=== PATIENT | female | born 1980 | race Caucasian/White ===

== ENCOUNTER 2018-08-04 18:43 | Emergency (ER) | payer SELFPAY ==
[2018-08-04 18:58] VITALS: BP 146/90
--- NOTE | 2018-08-04 19:16 | ER Document Report ---
ED General - General Chief Complaint: Chest Pain Stated Complaint: CHEST PAIN, SOB, ARM PAIN Time Seen by Provider: 08/04/18 19:04 Mode of Arrival: Ambulatory Information source: Patient, Relative Notes: This 37-year-old female patient reports waking up at 2:00 in the morning with left shoulder hurting. It eased off she was able to go back to sleep. She woke up again at 5:30 AM with her left chest hurting which was severe about 30 seconds and improved. Since getting up, the pain has been persistent and involves her left arm and shoulder, on her left anterior chest. She notes it is painful to turn twist and reach and to take a deep breath. During the history of physical when I would say something that would make the patient laugh, it would cause her to hurt worse. TRAVEL OUTSIDE OF THE [place] IN LAST 30 DAYS: No - Related Data Allergies/Adverse Reactions: clarithromycin [From Biaxin] Allergy (Verified 08/04/18 18:44) Past Medical History - General Information source: Patient, Relative - Social History Smoking Status: Current Every Day Smoker Cigarette use (# per day): Yes - 3/4 PPD Chew tobacco use (# tins/day): No Smoking Education Provided: No Frequency of alcohol use: None Drug Abuse: None Family History: Reviewed & Not Pertinent Patient has suicidal ideation: No Patient has homicidal ideation: No Neurological Medical History: Reports: Other - Pseudotumor cerebra Traumatic Medical History: Reports: Hx Fractures - Bilateral ankle fractures Past Surgical History: Reports: Hx Section - x3, Hx Orthopedic Surgery - Bilateral ankle ORIF and removal of hardware, Hx Tonsillectomy Review of Systems - Review of Systems Constitutional: No symptoms reported EENT: No symptoms reported Cardiovascular: No symptoms reported Respiratory: No symptoms reported Gastrointestinal: No symptoms reported Genitourinary: No symptoms reported Female Genitourinary: Last menstrual period - 2 weeks ago Musculoskeletal: No symptoms reported Skin: No symptoms reported Hematologic/Lymphatic: No symptoms reported Neurological/Psychological: No symptoms reported Physical Exam - Vital signs Vitals: Temp Pulse Resp BP Pulse Ox 98.1 F 107 H 17 146/90 H 95 08/04/18 18:56 08/04/18 18:56 08/04/18 18:56 08/04/18 18:56 08/04/18 18:56 - Notes Notes: PHYSICAL EXAMINATION: GENERAL: Well-appearing, well-nourished and in no acute distress. HEAD: Atraumatic, normocephalic. EYES: Pupils equal round and reactive to light, extraocular movements intact, sclera anicteric, conjunctiva are normal. ENT: nares patent, oropharynx clear without exudates. Moist mucous membranes. NECK: Left posterior cervical and trapezius muscles very tender to palpate. Right side is not tender. BACK: Left scapular muscles tender to palpate. Right side is not tender. CHEST: Left anterior chest wall is very tender to palpate along the sternum and the anterior ribs underneath the breast. The right side is not tender to palpate. Left pectoralis muscle is tender to palpate, the right pectoralis muscle is not tender. LUNGS: Breath sounds clear to auscultation bilaterally and equal. There is some rhonchi and smoker's type cough when the patient laughs and provokes a coughing spell. This also causes her to hurt worse in the left anterior chest. HEART: Regular rate and rhythm without murmurs ABDOMEN: Obese. Soft, nontender, normoactive bowel sounds. No guarding, no rebound. No masses appreciated. EXTREMITIES: Normal range of motion, no pitting or edema. No cyanosis. Left shoulder deltoid region tender to palpate. Right shoulder is not tender. NEUROLOGICAL: Cranial nerves grossly intact. Normal speech, normal gait. Normal sensory, motor, and reflex exams. PSYCH: Normal mood, normal affect. SKIN: Warm, Dry, normal turgor, no rashes or lesions noted. Course - Vital Signs Vital signs: Temp Pulse Resp BP Pulse Ox 98.1 F 107 H 17 146/90 H 95 08/04/18 18:56 08/04/18 18:56 08/04/18 18:56 08/04/18 18:56 08/04/18 18:56 Discharge - Discharge Clinical Impression: Chest wall pain Muscle strain of left scapular region Qualifiers: Encounter type: initial encounter Qualified Code(s): S46.912A - Strain of unspecified muscle, fascia and tendon at shoulder and upper arm level, left arm, initial encounter Strain of left trapezius muscle Qualifiers: Encounter type: initial encounter Qualified Code(s): S46.812A - Strain of other muscles, fascia and tendons at shoulder and upper arm level, left arm, initial encounter Condition: Stable Disposition: HOME, SELF-CARE Additional Instructions: Chest Wall Pain Your chest pain has been diagnosed as coming from the chest wall. This is often caused by straining the muscles or joints in the chest during physical activity, direct trauma, coughing, or vigorous vomiting. Persons with arthritis are especially prone to this type of pain, due to inflammation of the cartilage joints near the breast bone. Occasionally, no cause can be found. Rest from strenuous physical activity. This kind of chest pain is usually made worse by movement of the chest. Depending on the symptoms, we may prescribe medicine for pain, muscle relaxation, and antiinflammatory effects. If the pain is new, and seems to be due to muscle strain, cold packs can help. Otherwise, apply gentle warmth to the painful area for 15 minutes every hour or two. You should contact the doctor immediately if things change. Further evaluation is needed if you develop a fever or cough, if the nature of the pain changes, or if you become short of breath. Take the medication as prescribed for pain if needed. Take ibuprofen 800 mg every 8 hours. Drink plenty of fluids and get plenty of rest. Try to reduce smoking. Try to rest the left upper extremity is much as possible. Follow-up with a local primary care provider if not improving. RETURN TO THE EMERGENCY ROOM IF ANY NEW OR WORSENING SYMPTOMS. Prescriptions: Hydrocodone/Acetaminophen [[place] 5-325 mg Tablet] 1 tab PO Q4 PRN #15 tablet PRN Reason:
--- NOTE | 2018-08-04 21:41 | EKG REPORT ---
SEVERITY:- OTHERWISE NORMAL ECG - SINUS TACHYCARDIA BORDERLINE RIGHT AXIS DEVIATION : Confirmed by: Linda Roca MD 04-Aug-2018 21:39:54
== END 2018-08-04 19:18 | disposition home or self-care (01) ==
LOC: ER 18:43
DX: S46.912A Strain of unspecified muscle, fascia and tendon at shoulder and upper arm level, left arm, initial encounter (principal); S46.812A Strain of other muscles, fascia and tendons at shoulder and upper arm level, left arm, initial encounter; R07.89 Other chest pain; R06.02 Shortness of breath; M25.512 Pain in left shoulder; F17.210 Nicotine dependence, cigarettes, uncomplicated; X58.XXXA Exposure to other specified factors, initial encounter
CPT/HCPCS: 93005; 93010; 99284